=== PATIENT | male | born 1955 | race Caucasian/White ===

== ENCOUNTER → 2017-12-27 | Outpatient (CLI) | payer OTHER ==
[~2017-12-27] MED LIST: ALLEGRA ALLERG180 MG; ANALGESIC325 MG PO; ASPIRIN EC325 M1 PO; CENTRUM SILVER1 EAC1 PO; CENTRUM SILVER1 EAC4 PO; CIPROFLOXIN HC2.5 M1 OPHTHALMIC; FEXOFENADINE H180 MG PO; FISH OIL 1,2001 EAC3; FISH OIL 1,2001 EAC4 PO; FISH OIL SOFTG1 EACH PO; GLUMETZA500 PO; LAMISIL250 MG; LANOXIN 0.250.25 M1 PO; LANOXIN 0.250.25 MG PO; LANSOPRAZOLE30 MG PO; LASIX 40 MG TAB40 MG GT; LEVAQUIN 750 M750 MG PO; LIPITOR20 MG; LIPITOR20 MG PO; MAXZIDE 75-501 EACH PO; MEDROL DOSPAK21 TAB PO; METHOTREXATE 22.5 M1; NAPROSYN375 MG; NITROGLYCERIN0.4 MG SUBLING; NITROQUICK0.4 MG SL; ODORLESS GARLI500 MG PO; ONE DAILY MULT1 EAC2; ONGLYZA5 MG PO; PREMARIN0.9 M1; PREVACID30 M1 PO; TRIAMTERENE-HC1 EAC3 PO; VENTOLIN HFA 1818 GM INH; WELLBUTRIN SR150 MG; ZADITOR5 M1 OPHTHALMIC; ZETIA10 MG; ZETIA10 MG PO; ZOLOFT100 MG; [UNRECOGNIZED DRUG - OTHER]
[2017-12-27 07:00] LABS: ABSOLUTE EOSINOPHILS 0.4 thou/uL (0.0-0.7); ABSOLUTE LYMPHOCYTES 1.4 thou/uL (0.8-5.3); ABSOLUTE MONOCYTES 0.6 thou/uL (0.0-1.2); ABSOLUTE NEUTROPHILS 5.2 thou/uL (1.6-8.1); BASOPHILS 0.5 %; EOSINOPHILS 5.1 %; HEMOGLOBIN 13.7 gm/dL (14.0-18.0); LYMPHOCYTES 18.3 %; MCH 32.7 pg (26.0-34.0); MCHC 34.2 g/dL (28.0-37.0); MCV 95.6 fL (80.0-100.0); MONOCYTES 7.9 %; NUCLEATED RBCS 0 /100WBC; PLATELET COUNT* 119 thou/uL (150-400); POLYS 68.2 %; RBC 4.19 mil/uL (4.50-6.00); RDW-CV 13.6 % (10.5-14.5); WBC 7.6 thou/uL (4.0-11.0)
[2017-12-27 07:17] LABS: ALBUMIN 3.9 g/dL (3.4-5.0); CALCIUM 9.7 mg/dL (8.5-10.1); CREATININE 1.4 mg/dL (0.6-1.3); POTASSIUM 3.8 mmol/L (3.5-5.1); TOTAL BILIRUBIN 0.6 mg/dL (<0.1-1.0); TOTAL PROTEIN 8.2 g/dL (6.4-8.2)
== END ==
LOC: M.LAB 06:41
PROVIDERS: Internal Medicine Cardiovascular Disease
DX: I25.10 Atherosclerotic heart disease of native coronary artery without angina pectoris (principal); I10 Essential (primary) hypertension

== ENCOUNTER → 2018-07-03 | Outpatient (CLI) | payer OTHER ==
[2018-07-03 06:53] LABS: CALCIUM 9.5 mg/dL (8.5-10.1); CREATININE 1.5 mg/dL (0.6-1.3); POTASSIUM 3.5 mmol/L (3.5-5.1)
== END ==
LOC: M.LAB 06:26
PROVIDERS: Internal Medicine Cardiovascular Disease
DX: I49.3 Ventricular premature depolarization (principal)

== ENCOUNTER → 2019-01-10 | Outpatient (CLI) | payer OTHER | LOC: M.LAB 07:08 | DX: I35.0 Nonrheumatic aortic (valve) stenosis (principal) ==